=== PATIENT | male | born 1960 | race Two or more races ===

== ENCOUNTER 2021-07-29 07:38 | Outpatient (CLI) | payer OTHER | END 2021-07-29 07:51 | disposition home or self-care (01) | LOC: NUCLEAR 07:38 | PROVIDERS: ATTEND Specialist | DX: I11.9 Hypertensive heart disease without heart failure (principal); I25.89 Other forms of chronic ischemic heart disease; E78.5 Hyperlipidemia, unspecified; E11.9 Type 2 diabetes mellitus without complications | CPT/HCPCS: 78452; 93017; A9500 ==